=== PATIENT | male | born 1965 | race Caucasian/White ===

== ENCOUNTER 2017-10-01 03:49 | Observation (INO) | payer OTHER ==
[~2017-10-01] VITALS: Ht 175.3 cm; Wt 86.3 kg
[~2017-10-01 03:49] MED LIST: ATARAX,VISTARIL50 MG PO
[2017-10-01 04:32] LABS: CHLORIDE 109 mEq/L (99-109); POTASSIUM 3.9 mEq/L (3.7-5.4); SODIUM 143 mEq/L (136-147)
[2017-10-01 04:33] LABS: D-DIMER ELISA < 150.00 ng/mLDDU (<230)
[2017-10-01 04:34] LABS: GLUCOSE 106 mg/dL (70-99); PTT 24.9 SEC (25-37)
[2017-10-01 04:35] LABS: BASOPHIL (%) 0.7 % (0-1); BASOPHIL COUNT 0.1 K/uL (0-0.1); EOSINOPHIL (%) 2.7 % (0-5); EOSINOPHIL COUNT 0.2 K/uL (0-0.3); HEMATOCRIT 42.3 % (38.0-50.0); HEMOGLOBIN 15.2 G/DL (12.5-16.6); IMMATURE GRANULOCYTE (%) 0.6 % (0.0-0.7); LYMPHOCYTE (%) 23.3 % (15-42); LYMPHOCYTE COUNT 1.7 K/uL (1.0-2.8); MCH 30.8 PG (29.0-34.0); MCHC 35.9 G/DL (30.0-36.0); MCV 85.8 FL (86-99); MONOCYTE (%) 7.3 % (3-12); MONOCYTE COUNT 0.5 K/uL (0-0.8); NEUTROPHIL (%) 65.4 % (45-76); NEUTROPHIL COUNT 4.7 K/uL (1.8-6.4); PLATELET COUNT 177 K/uL (156-360); RBC DIS.WIDTH-CV 12.3 % (11.8-14.6); RBC DIS.WIDTH-SD 38.2 % (39-53); RED BLOOD COUNT 4.93 M/uL (4.00-5.50); WHITE BLOOD COUNT 7.1 K/uL (4.1-10.2)
[2017-10-01 04:38] LABS: GFR ESTIMATE (CALCULATED) > 59 mL/min/ (58.99-99999)
[2017-10-01 04:39] LABS: UREA NITROGEN (BUN) 18 mg/dL (9-23)
[2017-10-01 04:44] LABS: ALBUMIN 4.1 g/dL (3.2-4.8); TROP-I INTERPRETATION NEGATIVE; TROPONIN-I < 0.01 ng/mL (0.0-0.30)
[2017-10-01 04:46] LABS: TOTAL PROTEIN 6.1 g/dL (6.4-8.3)
[2017-10-01 04:48] LABS: TOTAL BILIRUBIN 0.5 mg/dL (0.0-1.0)
[2017-10-01 04:49] LABS: ALKALINE PHOSPHATASE 54 IU/L (3-129)
[2017-10-01 04:52] LABS: ALT (GPT) 53 IU/L (3-49); AST (GOT) 29 IU/L (2-34); DIRECT BILIRUBIN 0.1 mg/dL (0.0-0.3)
[2017-10-01 04:53] LABS: LIPASE 41 U/L (1.0-51.0)
[2017-10-01 07:45] VITALS: BP 123/77
[2017-10-01 10:34] LABS: TROP-I INTERPRETATION NEGATIVE; TROPONIN-I < 0.01 ng/mL (0.0-0.30)
[2017-10-01 10:42] LABS: HDL CHOLESTEROL 33 MG/DL (Desirable>=40); LDL CHOLESTEROL 137 mg/dL (Desirable<100); NON-HDL CHOLESTEROL 163 mg/dL (Desirable<160); TOTAL CHOLESTEROL 196 mg/dL (Desirable<200); TRIGLYCERIDES 129 MG/DL (Normal: <150)
[2017-10-01 10:46] VITALS: BP 125/78
[2017-10-01] MEDS ORDERED: FISH OIL 1,0001 EAC7 PO (12:59)
[2017-10-01] MEDS ORDERED: VOLTAREN75 MG PO (13:00)
[2017-10-01] MEDS ORDERED: PANTOPRAZOLE SO40 MG PO (13:15)
[2017-10-01] MEDS ORDERED: ATORVASTATIN CA40 MG PO (13:15)
[2017-10-01] MEDS ORDERED: ASPIR-LOW81 MG PO (13:16)
[2017-10-01 15:13] VITALS: BP 115/70
[2017-10-01 16:18] LABS: TROP-I INTERPRETATION NEGATIVE; TROPONIN-I < 0.01 ng/mL (0.0-0.30)
== END 2017-10-01 16:55 | disposition home or self-care (01) ==
LOC: EME 03:49 → EDOF 05:48 → ENRESERV 05:51 → 4SOUTH 07:32
PROVIDERS: Emergency Medicine; Hospitalist; Physician Assistant
DX: R07.9 Chest pain, unspecified (principal); R61 Generalized hyperhidrosis; R06.09 Other forms of dyspnea; R11.0 Nausea; Z82.49 Family history of ischemic heart disease and other diseases of the circulatory system; F41.9 Anxiety disorder, unspecified; R91.1 Solitary pulmonary nodule
CPT/HCPCS: 71045; 80048; 80061; 80076; 83036; 83690; 84484; 85025; 85379; 85610; 85730; 93005; 99281; 99284; G0378